=== PATIENT | male | born 1940 | race Caucasian/White ===

== ENCOUNTER 2019-04-01 16:24 | Inpatient (IN) | payer MEDICARE, MEDICAID ==
[~2019-04-01] VITALS: Ht 172.7 cm; Wt 76.7 kg
[2019-04-01 17:34] LABS: HEMATOCRIT. 35.6 % (36.0-48.0); HEMOGLOBIN. 11.3 g/dL (12.0-16.0); MEAN CORPUSCULAR HEMOGLOBIN 24.2 pg (28.0-32.0); MEAN CORPUSCULAR VOLUME 76.2 fL (81.0-99.0); PLATELET 163 x1000/uL (130-400); RED BLOOD CELL COUNT 4.68 mill/uL (4.2-5.4); RED CELL DISTRIBUTION WIDTH 17.9 % (11.6-14.6)
[2019-04-01 17:41] LABS: CHLORIDE 100 mEq/L (98-107)
[2019-04-01 18:28] LABS: PLATELET ESTIMATE NORMAL
[2019-04-01] MEDS ORDERED: IPRATROPIUM/ALBUTEROL 0.5-3(2.5)MG/3ML NEB NEB PRN (21:00)
[2019-04-01] MEDS ORDERED: DIPHENHYDRAMINE 50MG/ML VIAL IV PRN (21:00)
[2019-04-01] MEDS ORDERED: GUAIFENESIN 200MG/10ML SUGAR FREE UDC PO PRN (21:00)
[2019-04-01] MEDS ORDERED: HYDRALAZINE 20MG/ML VIAL IV PRN (21:00)
[2019-04-01] MEDS ORDERED: MAGNESIUM/ALUMINUM HYDROXIDE/SIMETHICONE 30ML UDC PO PRN (21:00)
[2019-04-01] MEDS ORDERED: LORAZEPAM 2MG/ML CPJ IV PRN (21:00)
[2019-04-01] MEDS: INSULIN LISPRO 100 UNITS/ML SUBCUT SCH (21:00)
[2019-04-01] MEDS ORDERED: ACETAMINOPHEN 325MG TABLET PO PRN (21:00)
[2019-04-01] MEDS ORDERED: DOCUSATE SODIUM 100MG CAPSULE PO PRN (21:00)
[2019-04-01] MEDS ORDERED: DEXTROSE 50% WATER 50ML SYRINGE IV PRN (21:00)
[2019-04-01] MEDS ORDERED: ONDANSETRON HCL 4MG/2ML INJ IV PRN (21:00)
[2019-04-01] MEDS ORDERED: CLONIDINE 0.1MG TABLET PO PRN (21:00)
[2019-04-01] MEDS: BLOOD SUGAR DIAGNOSTIC STRIP TEST SCH (21:41)
[2019-04-01] MEDS ORDERED: HYDROCODONE/ACETAMINOPHEN 10/325MG TABLET PO PRN (22:15)
[2019-04-01] MEDS ORDERED: MORPHINE SULFATE 2 MG/ML CPJ (NOT FOR IM USE) IV PRN (22:16)
[2019-04-01] MEDS: SODIUM CHLORIDE 0.9% INJ 3ML FLUSH IVF SCH (22:36)
[2019-04-01 23:53] LABS: CREATINE KINASE 49 IU/L (39-308)
[2019-04-01 23:54] LABS: CREATINE KINASE MB FRACTION < 1.0 ng/mL (0.5-3.6)
[2019-04-02 05:13] VITALS: BP 108/58
[2019-04-02 05:18] VITALS: BP 108/58
[2019-04-02] MEDS ORDERED: INSU100I28 SQ (05:18)
[2019-04-02] MEDS ORDERED: SEVE0.8P MT (05:18)
[2019-04-02] MEDS ORDERED: CLOP75TA33 PO (05:18)
[2019-04-02] MEDS ORDERED: METO-385 PO (05:18)
[2019-04-02] MEDS ORDERED: NEPVIT MT (05:18)
[2019-04-02 07:34] LABS: CHLORIDE 101 mEq/L (98-107)
[2019-04-02 07:40] LABS: HEMATOCRIT. 36.6 % (42.0-52.0); HEMOGLOBIN. 11.5 g/dL (14.0-18.0); MEAN CORPUSCULAR VOLUME 76.4 fL (80.0-94.0); MEAN PLATELET VOLUME 8.3 fl (7.4-10.4); PLATELET 165 x1000/uL (130-400)
[2019-04-02] MEDS: BLOOD SUGAR DIAGNOSTIC STRIP TEST SCH ×4 (07:40→21:10)
[2019-04-02 07:43] LABS: LDL CHOLESTEROL 28 mg/dL (5-100)
[2019-04-02 07:45] LABS: HDL CHOLESTEROL 40 mg/dL (40-59); T4 FREE 1.04 ng/dL (0.76-1.46)
[2019-04-02 08:00] VITALS: BP_SYST 104; BP_SYST 84; BP_DIAS 43; BP_DIAS 48
[2019-04-02 08:01] LABS: CREATINE KINASE 51 IU/L (39-308)
[2019-04-02 08:02] LABS: CREATINE KINASE MB FRACTION < 1.0 ng/mL (0.5-3.6)
[2019-04-02] MEDS: INSULIN LISPRO 100 UNITS/ML SUBCUT SCH ×4 (08:10→21:00)
[2019-04-02] MEDS: ENOXAPARIN 30MG/0.3ML SYR SUBCUT SCH (08:17)
[2019-04-02 09:47] LABS: PLATELET ESTIMATE NORMAL
[2019-04-02 12:00] VITALS: BP 112/56
[2019-04-02] MEDS ORDERED: LEVOFLOXACIN 500MG PREMIX 100 ML IV SCH (12:00)
[2019-04-02 16:00] VITALS: BP 118/61
[2019-04-02] MEDS: SODIUM CHLORIDE 0.9% INJ 3ML FLUSH IVF SCH ×2 (18:53→22:00)
[2019-04-02 20:00] VITALS: BP 110/61
[2019-04-03] VITALS: BP 108/57
[2019-04-03 04:00] VITALS: BP 101/57
[2019-04-03] MEDS: SODIUM CHLORIDE 0.9% INJ 3ML FLUSH IVF SCH ×3 (05:03→22:18)
[2019-04-03 07:09] LABS: HEMATOCRIT. 37.4 % (42.0-52.0); HEMOGLOBIN. 12.1 g/dL (14.0-18.0); MEAN CORPUSCULAR HEMOGLOBIN 24.3 pg (28.0-32.0); MEAN CORPUSCULAR VOLUME 75.5 fL (80.0-94.0); MEAN PLATELET VOLUME 8.5 fl (7.4-10.4); PLATELET 167 x1000/uL (130-400); RED BLOOD CELL COUNT 4.95 mill/uL (4.7-6.1); RED CELL DISTRIBUTION WIDTH 18.1 % (11.6-14.6)
[2019-04-03] MEDS: BLOOD SUGAR DIAGNOSTIC STRIP TEST SCH ×4 (07:40→21:00)
[2019-04-03 08:00] VITALS: BP 112/62
[2019-04-03] MEDS: INSULIN LISPRO 100 UNITS/ML SUBCUT SCH ×4 (08:10→21:00)
[2019-04-03] MEDS: ENOXAPARIN 30MG/0.3ML SYR SUBCUT SCH (08:25)
[2019-04-03 12:00] VITALS: BP 105/53
[2019-04-03] MEDS ORDERED: LEVOFLOXACIN 250MG PREMIX 50 ML IV SCH (12:00)
[2019-04-03 13:18] LABS: PLATELET ESTIMATE NORMAL
[2019-04-03 16:00] VITALS: BP 100/51
[2019-04-03 20:00] VITALS: BP 119/64
[2019-04-04] VITALS: BP 109/57
[2019-04-04 04:00] VITALS: BP 115/55
[2019-04-04] MEDS: SODIUM CHLORIDE 0.9% INJ 3ML FLUSH IVF SCH ×2 (05:22→16:52)
[2019-04-04 07:01] LABS: HEMATOCRIT. 36.6 % (42.0-52.0); HEMOGLOBIN. 11.7 g/dL (14.0-18.0); MEAN CORPUSCULAR VOLUME 75.1 fL (80.0-94.0); MEAN PLATELET VOLUME 8.4 fl (7.4-10.4); PLATELET 164 x1000/uL (130-400); RED BLOOD CELL COUNT 4.87 mill/uL (4.7-6.1); RED CELL DISTRIBUTION WIDTH 17.9 % (11.6-14.6)
[2019-04-04] MEDS: BLOOD SUGAR DIAGNOSTIC STRIP TEST SCH ×3 (07:40→17:05)
[2019-04-04 08:00] VITALS: BP 98/43
[2019-04-04] MEDS: INSULIN LISPRO 100 UNITS/ML SUBCUT SCH ×3 (08:10→18:00)
[2019-04-04] MEDS: ENOXAPARIN 30MG/0.3ML SYR SUBCUT SCH (08:33)
[2019-04-04 10:25] VITALS: BP 101/55
[2019-04-04] MEDS ORDERED: LEVOFLOXACIN 250MG PREMIX 50 ML IV SCH (11:00)
[2019-04-04 12:00] VITALS: BP 114/54
[2019-04-04 14:20] LABS: PLATELET ESTIMATE NORMAL
[2019-04-04 16:00] VITALS: BP 134/71
[2019-05-30] MEDS ORDERED: ZINC220C2 PO (16:34)
[2019-05-30] MEDS ORDERED: ASCO500T20 PO (16:34)
== END 2019-04-04 18:34 | DRG 720 ==
LOC: ER 16:24 → EDSEX 16:24 → 7WST 20:42 → EDBEDREQTM 20:45 → EDBEDREQ 20:45 → ENRESERV 04-02 03:26
PROVIDERS: ADMIT Internal Medicine; ATTEND Internal Medicine
PROC: 5A1D70Z Performance of Urinary Filtration, Intermittent, Less than 6 Hours Per Day (ICD-10-PCS; 2019-04-02)
PROC: 5A1D70Z Performance of Urinary Filtration, Intermittent, Less than 6 Hours Per Day (ICD-10-PCS; principal; 2019-04-03)
DX: A41.9 Sepsis, unspecified organism (principal); I13.2 Hypertensive heart and chronic kidney disease with heart failure and with stage 5 chronic kidney disease, or end stage renal disease; G93.41 Metabolic encephalopathy; N18.6 End stage renal disease; E11.22 Type 2 diabetes mellitus with diabetic chronic kidney disease; I48.91 Unspecified atrial fibrillation; G90.8 Other disorders of autonomic nervous system; L03.90 Cellulitis, unspecified; R65.10 Systemic inflammatory response syndrome (SIRS) of non-infectious origin without acute organ dysfunction; I50.9 Heart failure, unspecified; L98.499 Non-pressure chronic ulcer of skin of other sites with unspecified severity; Z99.2 Dependence on renal dialysis; Z91.15 Patient's noncompliance with renal dialysis; Z79.02 Long term (current) use of antithrombotics/antiplatelets; Z79.4 Long term (current) use of insulin
CPT/HCPCS: 36415; 71045; 80048; 80053; 80061; 82550; 82553; 82962; 84439; 84443; 84484; 85025; 93005; 93970; 96365; 97162; 99285; J1650; J1815; J1956

== ENCOUNTER 2019-05-23 14:59 | Inpatient (IN) | payer MEDICARE, MEDICAID ==
[~2019-05-23] VITALS: Ht 172.7 cm; Wt 75.7 kg
[~2019-05-23 14:59] MED LIST: CLOP75TA33 PO; INSU100I28 SQ; METO-385 PO; NEPVIT MT; SEVE0.8P MT
[2019-05-23 16:29] LABS: HEMATOCRIT. 34.2 % (42.0-52.0); HEMOGLOBIN. 10.7 g/dL (14.0-18.0); MEAN CORPUSCULAR HEMOGLOBIN 21.9 pg (28.0-32.0); MEAN CORPUSCULAR VOLUME 69.9 fL (80.0-94.0); MEAN PLATELET VOLUME 8.6 fl (7.4-10.4); PLATELET 163 x1000/uL (130-400); RED BLOOD CELL COUNT 4.89 mill/uL (4.7-6.1)
[2019-05-23 16:34] LABS: INR 1.2; PROTHROMBIN TIME 12.6 sec (9.6-11.0)
[2019-05-23] MEDS ORDERED: CEFEPIME 1,000 MG in DEXTROSE 5% WATER 50 ML IV ONE (16:45)
[2019-05-23 16:47] LABS: CHLORIDE 99 mEq/L (98-107)
[2019-05-23] MEDS ORDERED: SODIUM CHLORIDE 0.9% 500 ML IV ONE ×2 (17:00→17:30)
[2019-05-23 17:04] LABS: PLATELET ESTIMATE NORMAL
[2019-05-23 21:20] VITALS: BP 105/59
[2019-05-23] MEDS ORDERED: ONDANSETRON HCL 4MG/2ML INJ IV PRN (21:45)
[2019-05-23] MEDS ORDERED: ACETAMINOPHEN 325MG TABLET PO PRN (21:45)
[2019-05-24] VITALS: BP 104/59
[2019-05-24] MEDS ORDERED: PIPERACILLIN/TAZOBACTAM 3.375 G in DEXTROSE 5% WATER 50 ML IV SCH ×2
[2019-05-24] MEDS ORDERED: VANCOMYCIN 1 G PREMIX 200 ML IV SCH
[2019-05-24] MEDS: PIPERACILLIN/TAZOBACTAM 2.25 G in DEXTROSE 5% WATER 50 ML IV SCH ×5 (00:12→23:29)
[2019-05-24 04:00] VITALS: BP 105/53
[2019-05-24 08:00] VITALS: BP 96/56
[2019-05-24] MEDS: HEPARIN 5000 UNITS/ML VIAL SUBCUT SCH ×2 (09:40→21:00)
[2019-05-24 09:46] LABS: HEMATOCRIT. 34.8 % (42.0-52.0); HEMOGLOBIN. 10.9 g/dL (14.0-18.0); MEAN CORPUSCULAR HEMOGLOBIN 21.8 pg (28.0-32.0); MEAN CORPUSCULAR VOLUME 69.4 fL (80.0-94.0); MEAN PLATELET VOLUME 8.6 fl (7.4-10.4); PLATELET 162 x1000/uL (130-400); RED BLOOD CELL COUNT 5.01 mill/uL (4.7-6.1); RED CELL DISTRIBUTION WIDTH 18.4 % (11.6-14.6)
[2019-05-24 09:48] LABS: CHLORIDE 99 mEq/L (98-107)
[2019-05-24] MEDS ORDERED: DEXTROSE 50% WATER 50ML SYRINGE IV PRN (11:45)
[2019-05-24 12:00] VITALS: BP 100/68
[2019-05-24] MEDS: BLOOD SUGAR DIAGNOSTIC STRIP TEST SCH ×3 (12:41→21:07)
[2019-05-24 13:42] LABS: PLATELET ESTIMATE NORMAL
[2019-05-24 16:00] VITALS: BP 128/53
[2019-05-24 20:00] VITALS: BP 105/54
[2019-05-25] VITALS: BP 103/50
[2019-05-25 04:00] VITALS: BP 99/56
[2019-05-25] MEDS: PIPERACILLIN/TAZOBACTAM 2.25 G in DEXTROSE 5% WATER 50 ML IV SCH ×3 (05:16→20:51)
[2019-05-25 05:33] LABS: HEMATOCRIT. 33.6 % (42.0-52.0); HEMOGLOBIN. 10.6 g/dL (14.0-18.0); MEAN CORPUSCULAR HEMOGLOBIN 21.8 pg (28.0-32.0); MEAN CORPUSCULAR VOLUME 69.1 fL (80.0-94.0); MEAN PLATELET VOLUME 9.1 fl (7.4-10.4); PLATELET 158 x1000/uL (130-400); RED BLOOD CELL COUNT 4.86 mill/uL (4.7-6.1); RED CELL DISTRIBUTION WIDTH 18.9 % (11.6-14.6)
[2019-05-25 05:39] LABS: CHLORIDE 103 mEq/L (98-107)
[2019-05-25] MEDS: BLOOD SUGAR DIAGNOSTIC STRIP TEST SCH ×4 (06:11→20:48)
[2019-05-25 08:00] VITALS: BP 100/60
[2019-05-25] MEDS: CLOPIDOGREL 75MG TABLET PO SCH (09:04)
[2019-05-25] MEDS: ASCORBIC ACID 500 MG TABLET PO SCH (09:04)
[2019-05-25] MEDS: ZINC SULFATE 220 MG ( 50 ) CAPSULE PO SCH (09:04)
[2019-05-25] MEDS: HEPARIN 5000 UNITS/ML VIAL SUBCUT SCH ×2 (09:05→20:51)
[2019-05-25] MEDS: FOLIC ACID/VITAMIN B COMP W-C TABLET PO SCH (09:10)
[2019-05-25 12:00] VITALS: BP 146/50
[2019-05-25 16:00] VITALS: BP 105/60
[2019-05-25 17:02] LABS: PLATELET ESTIMATE NORMAL
[2019-05-25 20:00] VITALS: BP 114/64
[2019-05-26] VITALS: BP 125/65
[2019-05-26 04:00] VITALS: BP 106/61
[2019-05-26] MEDS: PIPERACILLIN/TAZOBACTAM 2.25 G in DEXTROSE 5% WATER 50 ML IV SCH ×3 (05:23→21:52)
[2019-05-26] MEDS: BLOOD SUGAR DIAGNOSTIC STRIP TEST SCH ×4 (06:09→20:08)
[2019-05-26 06:38] LABS: CHLORIDE 102 mEq/L (98-107)
[2019-05-26 06:40] LABS: HEMATOCRIT. 33.1 % (42.0-52.0); HEMOGLOBIN. 10.5 g/dL (14.0-18.0); MEAN CORPUSCULAR HEMOGLOBIN 21.8 pg (28.0-32.0); MEAN CORPUSCULAR VOLUME 68.9 fL (80.0-94.0); MEAN PLATELET VOLUME 8.6 fl (7.4-10.4); PLATELET 175 x1000/uL (130-400); RED CELL DISTRIBUTION WIDTH 19.1 % (11.6-14.6)
[2019-05-26] MEDS: FOLIC ACID/VITAMIN B COMP W-C TABLET PO SCH (09:08)
[2019-05-26] MEDS: CLOPIDOGREL 75MG TABLET PO SCH (09:08)
[2019-05-26] MEDS: ZINC SULFATE 220 MG ( 50 ) CAPSULE PO SCH (09:08)
[2019-05-26] MEDS: ASCORBIC ACID 500 MG TABLET PO SCH (09:08)
[2019-05-26] MEDS: HEPARIN 5000 UNITS/ML VIAL SUBCUT SCH ×2 (09:09→21:02)
[2019-05-26 12:00] VITALS: BP 115/59
[2019-05-26 12:37] LABS: PLATELET ESTIMATE NORMAL
[2019-05-26 16:00] VITALS: BP 116/63
[2019-05-26 20:00] VITALS: BP 118/69
[2019-05-27 00:40] VITALS: BP 98/42
[2019-05-27 04:00] VITALS: BP 96/42
[2019-05-27] MEDS: PIPERACILLIN/TAZOBACTAM 2.25 G in DEXTROSE 5% WATER 50 ML IV SCH ×2 (05:38→13:04)
[2019-05-27 06:13] LABS: HEMATOCRIT. 34.8 % (42.0-52.0); HEMOGLOBIN. 10.8 g/dL (14.0-18.0); MEAN CORPUSCULAR HEMOGLOBIN 21.9 pg (28.0-32.0); MEAN CORPUSCULAR VOLUME 70.5 fL (80.0-94.0); MEAN PLATELET VOLUME 8.3 fl (7.4-10.4); PLATELET 176 x1000/uL (130-400); RED BLOOD CELL COUNT 4.93 mill/uL (4.7-6.1); RED CELL DISTRIBUTION WIDTH 18.9 % (11.6-14.6)
[2019-05-27] MEDS: BLOOD SUGAR DIAGNOSTIC STRIP TEST SCH ×4 (06:18→20:31)
[2019-05-27 06:35] LABS: CHLORIDE 107 mEq/L (98-107)
[2019-05-27 08:00] VITALS: BP 109/67
[2019-05-27] MEDS: ASCORBIC ACID 500 MG TABLET PO SCH ×2 (09:00→09:43)
[2019-05-27] MEDS: CLOPIDOGREL 75MG TABLET PO SCH ×2 (09:00→09:43)
[2019-05-27] MEDS: FOLIC ACID/VITAMIN B COMP W-C TABLET PO SCH ×2 (09:00→09:43)
[2019-05-27] MEDS: ZINC SULFATE 220 MG ( 50 ) CAPSULE PO SCH ×2 (09:00→09:43)
[2019-05-27] MEDS: HEPARIN 5000 UNITS/ML VIAL SUBCUT SCH ×2 (09:43→20:31)
[2019-05-27 09:59] LABS: PLATELET ESTIMATE NORMAL
[2019-05-27 12:00] VITALS: BP 119/66
[2019-05-27 16:00] VITALS: BP 120/67
[2019-05-27 20:00] VITALS: BP 122/66
[2019-05-28] VITALS (7 sets, daily range): BP systolic 91–124; BP diastolic 45–70
[2019-05-28] MEDS: BLOOD SUGAR DIAGNOSTIC STRIP TEST SCH ×4 (06:51→20:17)
[2019-05-28 06:57] LABS: HEMATOCRIT. 33.8 % (42.0-52.0); HEMOGLOBIN. 10.7 g/dL (14.0-18.0); MEAN CORPUSCULAR HEMOGLOBIN 21.9 pg (28.0-32.0); MEAN CORPUSCULAR VOLUME 69.2 fL (80.0-94.0); MEAN PLATELET VOLUME 8.9 fl (7.4-10.4); PLATELET 175 x1000/uL (130-400); RED BLOOD CELL COUNT 4.89 mill/uL (4.7-6.1); RED CELL DISTRIBUTION WIDTH 19.2 % (11.6-14.6)
[2019-05-28] MEDS: CLOPIDOGREL 75MG TABLET PO SCH (08:31)
[2019-05-28] MEDS: FOLIC ACID/VITAMIN B COMP W-C TABLET PO SCH (08:31)
[2019-05-28] MEDS: ASCORBIC ACID 500 MG TABLET PO SCH (08:32)
[2019-05-28] MEDS: HEPARIN 5000 UNITS/ML VIAL SUBCUT SCH ×2 (08:32→20:17)
[2019-05-28] MEDS: ZINC SULFATE 220 MG ( 50 ) CAPSULE PO SCH (08:32)
[2019-05-28] MEDS ORDERED: TOPUD MT (12:44)
[2019-05-28 22:11] LABS: PLATELET ESTIMATE NORMAL
[2019-05-29] VITALS: BP 130/76
[2019-05-29 04:00] VITALS: BP 125/79
[2019-05-29] MEDS: BLOOD SUGAR DIAGNOSTIC STRIP TEST SCH ×4 (07:40→21:00)
[2019-05-29 08:00] VITALS: BP 115/59
[2019-05-29] MEDS: CLOPIDOGREL 75MG TABLET PO SCH (08:37)
[2019-05-29] MEDS: FOLIC ACID/VITAMIN B COMP W-C TABLET PO SCH (08:37)
[2019-05-29] MEDS: ASCORBIC ACID 500 MG TABLET PO SCH (08:37)
[2019-05-29] MEDS: HEPARIN 5000 UNITS/ML VIAL SUBCUT SCH ×2 (08:38→21:19)
[2019-05-29] MEDS: ZINC SULFATE 220 MG ( 50 ) CAPSULE PO SCH (08:38)
[2019-05-29 12:00] VITALS: BP 115/57
[2019-05-29] MEDS: LACTULOSE 20G/30ML UDC PO SCH ×2 (15:50→21:19)
[2019-05-29 16:00] VITALS: BP 132/61
[2019-05-29 20:00] VITALS: BP 116/62
[2019-05-30 00:05] VITALS: BP 121/80
[2019-05-30 04:00] VITALS: BP 118/69
[2019-05-30] MEDS: BLOOD SUGAR DIAGNOSTIC STRIP TEST SCH ×3 (05:40→17:34)
[2019-05-30] MEDS: LACTULOSE 20G/30ML UDC PO SCH ×2 (05:40→13:29)
[2019-05-30 08:00] VITALS: BP 102/48
[2019-05-30] MEDS: FOLIC ACID/VITAMIN B COMP W-C TABLET PO SCH (08:37)
[2019-05-30] MEDS: ASCORBIC ACID 500 MG TABLET PO SCH (08:37)
[2019-05-30] MEDS: ZINC SULFATE 220 MG ( 50 ) CAPSULE PO SCH (08:37)
[2019-05-30] MEDS: CLOPIDOGREL 75MG TABLET PO SCH (08:37)
[2019-05-30] MEDS: HEPARIN 5000 UNITS/ML VIAL SUBCUT SCH (08:38)
[2019-05-30 09:48] LABS: FOLIC ACID (FOLATE) SERUM >20 ng/mL ng/mL (>5.38)
[2019-05-30 10:01] LABS: VITAMIN B12 SERUM 680 pg/mL (211-911)
[2019-05-30 10:08] LABS: HEMATOCRIT. 36.2 % (42.0-52.0); HEMOGLOBIN. 11.1 g/dL (14.0-18.0); MEAN CORPUSCULAR HEMOGLOBIN 21.6 pg (28.0-32.0); MEAN CORPUSCULAR VOLUME 70.2 fL (80.0-94.0); MEAN PLATELET VOLUME 8.5 fl (7.4-10.4); PLATELET 184 x1000/uL (130-400); RED BLOOD CELL COUNT 5.16 mill/uL (4.7-6.1); RED CELL DISTRIBUTION WIDTH 19.3 % (11.6-14.6)
[2019-05-30 12:00] VITALS: BP 109/63
[2019-05-30 16:00] VITALS: BP 125/74
[2019-05-30] MEDS ORDERED: ASCO500T20 PO (16:34)
[2019-05-30] MEDS ORDERED: ZINC220C2 PO (16:34)
[2019-05-30 16:43] VITALS: BP 125/74
[2019-05-30 17:53] LABS: PLATELET ESTIMATE NORMAL
[2019-06-02 08:07] LABS: 25-HYDROXY VITAMIN D3 6.5 ng/mL (.)
== END 2019-05-30 18:53 | DRG 720 ==
LOC: ER 14:59 → 7WST 20:26 → EDBEDREQTM 20:31 → EDBEDREQ 20:31 → EDBEDREQSVC 20:31 → ENRESERV 21:14
PROVIDERS: ADMIT Internal Medicine; ATTEND Internal Medicine
PROC: 5A1D70Z Performance of Urinary Filtration, Intermittent, Less than 6 Hours Per Day (ICD-10-PCS; 2019-05-24)
PROC: 5A1D70Z Performance of Urinary Filtration, Intermittent, Less than 6 Hours Per Day (ICD-10-PCS; 2019-05-26)
PROC: 5A1D70Z Performance of Urinary Filtration, Intermittent, Less than 6 Hours Per Day (ICD-10-PCS; 2019-05-28)
PROC: 4A00X4Z Measurement of Central Nervous Electrical Activity, External Approach (ICD-10-PCS; principal; 2019-05-30)
DX: A41.02 Sepsis due to Methicillin resistant Staphylococcus aureus (principal); J90 Pleural effusion, not elsewhere classified; E46 Unspecified protein-calorie malnutrition; G92 Toxic encephalopathy; L03.90 Cellulitis, unspecified; R65.20 Severe sepsis without septic shock; E11.22 Type 2 diabetes mellitus with diabetic chronic kidney disease; E11.51 Type 2 diabetes mellitus with diabetic peripheral angiopathy without gangrene; E11.621 Type 2 diabetes mellitus with foot ulcer; E87.1 Hypo-osmolality and hyponatremia; E87.5 Hyperkalemia; N18.6 End stage renal disease; D64.9 Anemia, unspecified; L97.529 Non-pressure chronic ulcer of other part of left foot with unspecified severity; L97.429 Non-pressure chronic ulcer of left heel and midfoot with unspecified severity; R26.9 Unspecified abnormalities of gait and mobility; E11.42 Type 2 diabetes mellitus with diabetic polyneuropathy; E11.649 Type 2 diabetes mellitus with hypoglycemia without coma; I13.11 Hypertensive heart and chronic kidney disease without heart failure, with stage 5 chronic kidney disease, or end stage renal disease; Z79.02 Long term (current) use of antithrombotics/antiplatelets; Z79.4 Long term (current) use of insulin; Z99.2 Dependence on renal dialysis; Z82.49 Family history of ischemic heart disease and other diseases of the circulatory system; Z83.3 Family history of diabetes mellitus; Z68.25 Body mass index [BMI] 25.0-25.9, adult; Z79.899 Other long term (current) drug therapy
CPT/HCPCS: 36415; 70551; 71045; 73630; 80048; 80051; 80053; 80202; 82140; 82306; 82607; 82746; 82962; 83036; 83605; 83735; 84145; 84443; 84484; 85025; 87804; 92610; 93005; 93923; 96361; 96365; 97116; 97162; 97166; 99291; J0692; J1644; J2543; J3370; J7040; J7060